=== PATIENT | male | born 1960 | race Caucasian/White ===

== ENCOUNTER 2023-12-21 16:43 | Emergency (ER) | payer MEDICARE ==
[2023-12-21 18:35] VITALS: RESP 20; TEMP 98.7; O2SAT 93
[2023-12-21] MEDS: NORCO 10-325 MG PO ONE (19:53)
[2023-12-21] MEDS ORDERED: NORCO 10-325 MG ONE (19:53)
[2023-12-21] MEDS ORDERED: TORAdol 30 mg Injection ONE (19:53)
[2023-12-21] MEDS: TORAdol 30 mg Injection IM ONE (19:54)
--- NOTE | 2023-12-21 20:10 | ERPHSYRPT ---
- History of Present Illness Time Seen by Provider: 12/21/23 19:27 Source: patient Exam Limitations: no limitations Patient Subjective Stated Complaint: Left knee pain Triage Nursing Assessment: Patient brought back to ED and transferred to bed per self. Patient A+O x3. Patient's skin pink, warm and dry. Patient states he was trying to get into his truck when he fell with left leg bending behind him. Patient complains of left knee pain 10/10. No bruising or swelling noted. Physician History: Patient is here with left knee pain after a fall. Patient fell approximately 10 AM after getting out of his truck. States that his knee "bent back". He has not taken anything for pain today. Presents to the emergency department with some continued pain and swelling. Therefore would like to be evaluated. Allergies/Adverse Reactions: No Known Drug Allergies Allergy (Unverified 12/21/23 18:27) Hx Influenza Vaccination/Date Given: No Hx Pneumococcal Vaccination/Date Given: No Immunizations Up to Date: Yes Travel Risk - International Travel Have you traveled outside of the country in past 3 weeks: No - Coronavirus Screening Are you exhibiting any of the following symptoms?: No Close contact with a COVID-19 positive Pt in past 14-21 Days: No - Vaccine Status Have you recieved a Covid-19 vaccination: No - Review of Systems Constitutional: No Fever, No Chills Eyes: No Symptoms Ears, Nose, & Throat: No Symptoms Respiratory: No Cough, No Dyspnea Cardiac: No Chest Pain, No Edema, No Syncope Abdominal/Gastrointestinal: No Abdominal Pain, No Nausea, No Vomiting, No Diarrhea Genitourinary Symptoms: No Dysuria Musculoskeletal: No Back Pain, No Neck Pain Skin: No Rash Neurological: No Dizziness, No Focal Weakness, No Sensory Changes Psychological: No Symptoms Endocrine: No Symptoms All Other Systems: Reviewed and Negative - Past Medical History Pertinent Past Medical History: No Neurological History: No Pertinent History ENT History: No Pertinent History Cardiac History: Myocardial Infarction ([place]) Respiratory History: No Pertinent History Endocrine Medical History: No Pertinent History Musculoskeletal History: No Pertinent History GI Medical History: No Pertinent History History: No Pertinent History Psycho-Social History: No Pertinent History Male Reproductive Disorders: No Pertinent History - Past Surgical History Past Surgical History: Yes Neuro Surgical History: No Pertinent History Cardiac: Cardiac Stent Respiratory: No Pertinent History Gastrointestinal: No Pertinent History Genitourinary: No Pertinent History Musculoskeletal: No Pertinent History Male Surgical History: No Pertinent History - Social History Smoking Status: Current every day smoker How long have you smoked: years Exposure to second hand smoke: Yes Drug Use: none Patient Lives Alone: No - Nursing Vital Signs Nursing Vital Signs: Initial Vital Signs Temperature 98.7 F 12/21/23 18:27 Pulse Rate 105 H 12/21/23 18:27 Respiratory Rate 20 12/21/23 18:27 Blood Pressure 167/103 12/21/23 18:27 O2 Sat by Pulse Oximetry 93 L 12/21/23 18:27 Pain Scale Pain Intensity 10 - Physical Exam General Appearance: no apparent distress, alert Eye Exam: PERRL/EOMI, eyes nml inspection Ears, Nose, Throat Exam: normal ENT inspection, TMs normal, pharynx normal, moist mucous membranes Neck Exam: normal inspection, non-tender, supple, full range of motion Respiratory Exam: normal breath sounds, lungs clear, No respiratory distress Cardiovascular Exam: regular rate/rhythm, normal heart sounds, normal peripheral pulses Gastrointestinal/Abdomen Exam: soft, normal bowel sounds, No tenderness, No mass Back Exam: normal inspection, normal range of motion, No CVA tenderness, No vertebral tenderness Extremity Exam: normal inspection, normal range of motion, pelvis stable Neurologic Exam: alert, oriented x 3, cooperative, normal mood/affect, nml cerebellar function, nml station & gait, sensation nml, No motor deficits Skin Exam: normal color, warm, dry, No rash Lymphatic Exam: No adenopathy SpO2: 93 Comments: 12/21/23 22:47 Left knee tenderness. Minimal effusion. No obvious deformity, sensation intact, 2+ capillary refill, 2 point tactile discrimination intact. 5 out of 5 strength. Full range of motion with minimal pain. Compartments are soft, nontender. Overlying skin shows no tenting, bruising, ecchymosis. - Course Nursing assessment & vital signs reviewed: Yes Ordered Tests: Active Orders 24 hr Category Date Time Status KNEE (3 VIEWS) Stat Exams 12/21/23 18:21 Taken Medication Summary Discontinued Medications Generic Name Dose Route Start Last Admin Trade Name Freq PRN Reason Stop Dose Admin Hydrocodone Bitart/Acetaminophen 1 tablet 12/21/23 19:46 12/21/23 19:53 Hydrocodone/Acetamin 10-325 Mg Tablet PO 12/21/23 19:47 1 tablet ONCE ONE Administration Hydrocodone Bitart/Acetaminophen Confirm 12/21/23 19:53 Hydrocodone/Acetamin 10-325 Mg Tablet Administered 12/21/23 19:54 Dose 1 tablet .ROUTE .STK-MED ONE Ketorolac Tromethamine 30 mg 12/21/23 19:46 12/21/23 19:54 Ketorolac Tromethamine 30 Mg/Ml Inj IM 12/21/23 19:47 30 mg STAT ONE Administration Ketorolac Tromethamine Confirm 12/21/23 19:53 Ketorolac Tromethamine 30 Mg/Ml Inj Administered 12/21/23 19:54 Dose 30 mg .ROUTE .STK-MED ONE - Progress Progress Note: 12/21/23 22:48 Patient given Toradol and [place] in the emergency department. He feels improved with these medications. X-ray was interpreted by myself. I saw no obvious fracture or other trauma. Patient does appear to have severe osteoarthritis in that leg. Follow-up closely with PCP. Patient may return here sooner for any new or changing symptoms. Counseled pt/family regarding: diagnosis, need for follow-up, rad results - Departure Departure Disposition: Home Clinical Impression: Left knee sprain Condition: Stable Critical Care Time: No Referrals: GISELA RODRIGUEZ MD [Primary Care Provider] - Follow up/PCP as directed Instructions: Knee Sprain (DC) Prescriptions: Cyclobenzaprine HCl 10 mg [Flexeril 10 MG] 10 mg PO TID #12 tablet
[2023-12-21 20:25] VITALS: BP 136/97; PULSE 84
--- NOTE | 2023-12-22 08:53 | XRAY ---
Indication: Pain following fall. Comparison: None 3 view left knee demonstrates osteopenia, moderate/advanced tricompartmental degenerative changes greatest medial compartment, tiny nonspecific effusion, posterior fabella, and mild scattered vascular calcifications. No other bony, articular, or soft tissue abnormalities.
== END 2023-12-21 20:21 | disposition home or self-care (01) ==
LOC: ED 16:43
DX: S83.8X2A Sprain of other specified parts of left knee, initial encounter (principal); M25.562 Pain in left knee; W17.89XA Other fall from one level to another, initial encounter
CPT/HCPCS: 73562; 96372; 99283; J1885; A9270-GY

== ENCOUNTER 2024-05-19 12:21 | Emergency (ER) | payer MEDICARE, OTHER ==
[2024-05-19 12:30] VITALS: TEMP 97.7; O2SAT 92
[2024-05-19] MEDS ORDERED: TORAdol 30 mg Injection ONE (12:47)
[2024-05-19] MEDS: TORAdol 30 mg Injection IM ONE (12:48)
--- NOTE | 2024-05-19 12:55 | ERPHSYRPT ---
- History of Present Illness Time Seen by Provider: 05/19/24 12:22 Source: patient Exam Limitations: no limitations Patient Subjective Stated Complaint: Pt states "I have a horrible earach. It started 3 days ago and I went to [facility] and they told me they do not give a nything for pain and I need pain meds." Triage Nursing Assessment: PT presented alert and oriented X 3, skin pwd pt able to speak in clear full sentences. PT resting comfortably on the wheelchair Physician History: 63 years old morbidly obese male with history of COPD, chronic back pain on tramadol presented to the ER with complaint of right earache for the last 3 days with progressive worsening. Patient reports sharp throbbing pain with reproducibility on movements of pinna. Patient denies any discharge. No history of otitis media or swimming. Patient denies any fever chills or URI symptoms. Allergies/Adverse Reactions: No Known Drug Allergies Allergy (Unverified 12/21/23 18:27) Home Medications: Tramadol HCl 50 mg [Ultram 50 mg] 50 mg PO TID 05/19/24 [History] Hx Tetanus, Diphtheria Vaccination/Date Given: No Hx Influenza Vaccination/Date Given: No Hx Pneumococcal Vaccination/Date Given: No Immunizations Up to Date: No Travel Risk - International Travel Have you traveled outside of the country in past 3 weeks: No - Emerging Infectious Disease Are you exhibiting symptoms associated with any current EIDs: No - Review of Systems Constitutional: No Symptoms Ears, Nose, & Throat: Ear Pain Respiratory: No Symptoms Cardiac: No Symptoms Skin: No Symptoms Neurological: No Symptoms Endocrine: No Symptoms Hematologic/Lymphatic: No Symptoms - Past Medical History Pertinent Past Medical History: No Neurological History: Migraines ENT History: No Pertinent History Cardiac History: High Cholesterol, Hypertension, Myocardial Infarction ([place]) Respiratory History: COPD, Sleep Apnea Endocrine Medical History: Diabetes Type II Musculoskeletal History: Degenerative Disk Disease, Osteoarthritis GI Medical History: No Pertinent History History: No Pertinent History Psycho-Social History: No Pertinent History Male Reproductive Disorders: No Pertinent History Other Medical History: ALSO HAS SEVERE DJD TO LOW BACK PAIN AND UNABLE TO STAND MORE THAN 30 SECONDS AT A TIME - Past Surgical History Past Surgical History: Yes Neuro Surgical History: No Pertinent History Cardiac: Cardiac Stent Respiratory: No Pertinent History Gastrointestinal: No Pertinent History Genitourinary: No Pertinent History Musculoskeletal: No Pertinent History Male Surgical History: No Pertinent History - Social History Smoking Status: Current every day smoker How long have you smoked: years Exposure to second hand smoke: Yes Drug Use: none Patient Lives Alone: No - Social Determinants of Health Will the patient participate in the screening: Declined to provide - Nursing Vital Signs Nursing Vital Signs: Initial Vital Signs Temperature 97.7 F 05/19/24 12:27 Pulse Rate 105 H 05/19/24 12:27 Respiratory Rate 18 05/19/24 12:27 Blood Pressure 164/89 05/19/24 12:27 O2 Sat by Pulse Oximetry 92 L 05/19/24 12:27 Pain Scale Pain Intensity 10 - Physical Exam General Appearance: no apparent distress, alert Eye Exam: bilateral eye: normal inspection, PERRL, EOMI Ear Exam: right ear: swelling, tenderness, left ear: canal normal, TM normal, bilateral ear: auricle normal Nasal Exam: normal inspection Throat Exam: normal, pharynx normal Neck Exam: normal inspection, non-tender, supple, full range of motion Cardiovascular/Respiratory Exam: normal breath sounds, regular rate/rhythm Neurologic Exam: alert, oriented x 3, cooperative, hand fur cleaner II-XII nml as tested Skin Exam: normal color SpO2 Interpretation: normal SpO2: 92 O2 Delivery: Room Air Ordered Tests: Medication Summary Discontinued Medications Generic Name Dose Route Start Last Admin Trade Name Chantal PRN Reason Stop Dose Admin Ketorolac Tromethamine 30 mg 05/19/24 12:46 05/19/24 12:48 Ketorolac Tromethamine 30 Mg/Ml Inj IM 05/19/24 12:47 30 mg STAT ONE Administration Ketorolac Tromethamine Confirm 05/19/24 12:47 Ketorolac Tromethamine 30 Mg/Ml Inj Administered 05/19/24 12:48 Dose 30 mg .ROUTE .STK-MED ONE - Progress Progress: pain not gone completely Progress Note: 05/19/24 12:56 63 years old is evaluated for right earache for the last 3 days with progressive worsening. Patient has reproducibility with movements of pinna. Has diffusely swollen canal with minimal discharge. Could not see the TM. I believe patient has otitis media with either perforation or having otitis externa. I would start him on topical and oral antibiotics. He is given Toradol here for symptomatic relief. Patient is requesting stronger pain medications, does have a contract with Dr. Rodriguez where he gets tramadol. I have discussed with patient in length about following up with his primary care to discuss about his pain medication options as this would be a violation of pain contract if I give him pain medications. Patient seems understanding. Discussed signs symptoms of worsening needing return to ER which he seems understanding. Stable for discharge. Counseled pt/family regarding: diagnosis, need for follow-up Medical Desision Making - Diagnostic Testing Diagnostic test were ordered, analyzed, and reviewed by me: No - Risk of complications The pt has a mod risk of morbidity or mortality based on: Need for prescription drug management - Departure Departure Disposition: Home Clinical Impression: Otitis media Condition: Stable Critical Care Time: No Referrals: GISELA RODRIGUEZ MD [Primary Care Provider] - Follow up with PCP 1 day Instructions: Serous Otitis Media (DC) Prescriptions: Amox Tr/Potass Clav. 875 mg [Augmentin 875-125 Tablet] 875 mg PO BID #20 tablet Ofloxacin Otic 5 ml [Floxin Otic 5 ML] 5 ml OT BID 7 Days #5 ml
[2024-05-19 13:03] VITALS: BP 158/76; PULSE 98; RESP 20
== END 2024-05-19 13:00 | disposition home or self-care (01) ==
LOC: ED 12:21
DX: H66.91 Otitis media, unspecified, right ear (principal); H92.01 Otalgia, right ear; E78.5 Hyperlipidemia, unspecified; I10 Essential (primary) hypertension; E11.9 Type 2 diabetes mellitus without complications; Z79.891 Long term (current) use of opiate analgesic; Z79.899 Other long term (current) drug therapy; Z72.0 Tobacco use
CPT/HCPCS: 96372; 99283; J1885